=== PATIENT | male | born 1965 | race Caucasian/White ===

== ENCOUNTER → 2016-09-12 | Outpatient (CLI) | payer OTHER ==
--- NOTE | 2016-09-12 08:59 | DIAGNOSTIC IMAGING REPORT ---
DOUBLE CONTRAST BARIUM ESOPHAGRAM CLINICAL HISTORY: Dysphagia. Nausea and diarrhea. COMPARISON STUDY: No priors. TECHNIQUE: A standard air contrast barium esophagram is performed. Multiple spot images of the esophagus are acquired both upright and prone. FINDINGS: The patient swallowed barium and the barium pill without difficulty. The mucosal pattern is normal. There is no evidence of intrinsic or extrinsic mass lesion. No aspiration was seen. The gastroesophageal junction distended normally. No gastroesophageal reflux could be elicited by having the patient perform the Valsalva maneuver. There is a small hiatal hernia. A Schatzki ring is suggested in the distal esophagus. Fluoroscopy time: 1.4 minutes. Fluoroscopic images: 22 IMPRESSION: 1. The patient swallowed barium and the barium pill without difficulty. No gastroesophageal reflux was seen. 2. There is a small hiatal hernia and a Schatzki's ring is suggested in the distal esophagus. Electronically signed by: Phuc Shields M.D. 09/12/2016 8:58 AM Dictated Date/Time: 09/12/2016 8:52 AM
== END | disposition home or self-care (01) ==
LOC: C.RAD 08:24
PROVIDERS: ATTEND Internal Medicine
DX: K44.9 Diaphragmatic hernia without obstruction or gangrene (principal); K22.2 Esophageal obstruction